=== PATIENT | male | born 1940 | race African-American/Black ===

== ENCOUNTER 2019-05-04 20:11 | Emergency (ER) | payer MEDICARE ==
[~2019-05-04] VITALS: Ht 177.8 cm; Wt 100.0 kg
[~2019-05-04 20:11] MED LIST: ALLO300T2 PO; GLIP5TAB20 PO; HYDR-519 PO; LEVO125T8 PO; LISI1TAB11 PO; LOVA20TA2 PO; METF-516 PO; OXYM30MI NS
[2019-05-04] MEDS ORDERED: IBUPROFEN 600MG TABLET PO ONE (22:30)
[2019-05-04 22:32] VITALS: BP 160/98
== END 2019-05-05 00:25 | disposition home or self-care (01) ==
LOC: ER 20:11
DX: S46.912A Strain of unspecified muscle, fascia and tendon at shoulder and upper arm level, left arm, initial encounter (principal); M10.9 Gout, unspecified; E11.9 Type 2 diabetes mellitus without complications; I10 Essential (primary) hypertension; Z79.899 Other long term (current) drug therapy; X58.XXXA Exposure to other specified factors, initial encounter; Y93.89 Activity, other specified; Y92.89 Other specified places as the place of occurrence of the external cause; Y99.8 Other external cause status
CPT/HCPCS: 73030; 99283